=== PATIENT | female | born 1945 | race Caucasian/White ===

== ENCOUNTER → 2017-08-24 08:39 | Outpatient (CLI) | payer MEDICARE, SELFPAY ==
[2017-08-24 09:39] LABS: Hemoglobin A1C 7.2 % (0.0-7.0)
[2017-08-24 11:27] LABS: Alanine Aminotransferase 34 U/L (12-78); Albumin Level 4.2 gm/dL (3.4-5.0); Alkaline Phosphatase 93 U/L (46-116); Anion Gap 18.4 mEq/L (5-15); Aspartate Amino Transferase 29 U/L (15-37); Bilirubin,Total 0.5 mg/dL (0.2-1.0); Blood Urea Nitrogen 22 mg/dL (7-18); Calcium 9.5 mg/dL (8.5-10.1); Carbon Dioxide 25 mmol/L (21.0-32.0); Chloride 103 mmol/L (98-107); Chol/HDL Ratio 5.8 (1-3.5); Cholesterol 198 mg/dL (140-200); Creatinine,Serum 0.84 mg/dL (0.55-1.02); Estimated Glomerular Filt Rate 67 ml/min (>60); GFR (African American) 81 ML/MIN (>60); Globulin 4.1 gm/dl (1.3-3.2); Glucose 148 mg/dL (74-106); HDL Cholesterol 34 mg/dL (29-89); LDL Cholesterol 128 mg/dL (0-130); Potassium 4.4 mmoL/L (3.5-5.1); Sodium 142 mmol/L (136-145); Total Protein,Serum 8.3 gm/dL (6.4-8.2); Triglycerides 180 mg/dL (30-200); VLDL Cholesterol 36 mg/dL (0-40)
== END ==
PROVIDERS: Visit Provider Family Medicine
DX: E11.9 Type 2 diabetes mellitus without complications (principal); E78.5 Hyperlipidemia, unspecified; I10 Essential (primary) hypertension
CPT/HCPCS: 36415; 80053; 80061; 83036

== ENCOUNTER → 2017-11-19 08:09 | Outpatient (CLI) | payer MEDICARE, SELFPAY ==
[2017-11-19 08:54] LABS: Hemoglobin A1C 6.5 % (0.0-7.0)
[2017-11-19 09:45] LABS: Chol/HDL Ratio 5.4 (1-3.5); Cholesterol 196 mg/dL (140-200); HDL Cholesterol 36 mg/dL (29-89); LDL Cholesterol 119 mg/dL (0-130); Triglycerides 203 mg/dL (30-200); VLDL Cholesterol 41 mg/dL (0-40)
== END ==
PROVIDERS: Visit Provider Family Medicine
DX: E11.9 Type 2 diabetes mellitus without complications (principal); E78.5 Hyperlipidemia, unspecified
CPT/HCPCS: 36415; 80061; 83036

== ENCOUNTER → 2018-02-25 08:12 | Outpatient (CLI) | payer MEDICARE, SELFPAY ==
[2018-02-25 11:10] LABS: Alanine Aminotransferase 27 U/L (12-78); Albumin Level 3.8 gm/dL (3.4-5.0); Alkaline Phosphatase 85 U/L (46-116); Anion Gap 14.5 mEq/L (5-15); Aspartate Amino Transferase 19 U/L (15-37); Bilirubin,Total 0.4 mg/dL (0.2-1.0); Blood Urea Nitrogen 19 mg/dL (7-18); Carbon Dioxide 28 mmol/L (21.0-32.0); Chloride 101 mmol/L (98-107); Chol/HDL Ratio 4.6 (1-3.5); Cholesterol 180 mg/dL (140-200); Creatinine,Serum 0.75 mg/dL (0.55-1.02); Estimated Glomerular Filt Rate 76 ml/min (>60); GFR (African American) 92 ML/MIN (>60); Globulin 3.8 gm/dl (1.3-3.2); Glucose 138 mg/dL (74-106); HDL Cholesterol 39 mg/dL (29-89); LDL Cholesterol 109 mg/dL (0-130); Potassium 4.5 mmoL/L (3.5-5.1); Sodium 139 mmol/L (136-145); Total Protein,Serum 7.6 gm/dL (6.4-8.2); Triglycerides 162 mg/dL (30-200); VLDL Cholesterol 32 mg/dL (0-40)
[2018-02-25 11:54] LABS: Hemoglobin A1C 6.7 % (0.0-7.0)
== END ==
PROVIDERS: Visit Provider Family Medicine
DX: E11.9 Type 2 diabetes mellitus without complications (principal); E78.5 Hyperlipidemia, unspecified; I10 Essential (primary) hypertension
CPT/HCPCS: 36415; 80053; 80061; 83036

== ENCOUNTER → 2018-08-25 08:17 | Outpatient (CLI) | payer MEDICARE, SELFPAY ==
[2018-08-25 10:00] LABS: Alanine Aminotransferase 26 U/L (12-78); Albumin Level 3.8 gm/dL (3.4-5.0); Alkaline Phosphatase 82 U/L (46-116); Anion Gap 14.9 mEq/L (5-15); Aspartate Amino Transferase 13 U/L (15-37); Bilirubin,Total 0.5 mg/dL (0.2-1.0); Blood Urea Nitrogen 27 mg/dL (7-18); Calcium 8.6 mg/dL (8.5-10.1); Carbon Dioxide 26 mmol/L (21.0-32.0); Chloride 102 mmol/L (98-107); Chol/HDL Ratio 5.5 (1-3.5); Cholesterol 191 mg/dL (140-200); Creatinine,Serum 0.84 mg/dL (0.55-1.02); Estimated Glomerular Filt Rate 67 ml/min (>60); GFR (African American) 81 ML/MIN (>60); Globulin 3.8 gm/dl (1.3-3.2); Glucose 164 mg/dL (74-106); HDL Cholesterol 35 mg/dL (29-89); LDL Cholesterol 120 mg/dL (0-130); Potassium 3.9 mmoL/L (3.5-5.1); Sodium 139 mmol/L (136-145); Total Protein,Serum 7.6 gm/dL (6.4-8.2); Triglycerides 180 mg/dL (30-200); VLDL Cholesterol 36 mg/dL (0-40)
[2018-08-25 11:21] LABS: Hemoglobin A1C 6.8 % (0.0-7.0)
== END ==
PROVIDERS: Visit Provider Family Medicine
DX: E11.9 Type 2 diabetes mellitus without complications (principal); E78.5 Hyperlipidemia, unspecified; I10 Essential (primary) hypertension
CPT/HCPCS: 36415; 80053; 80061; 83036

== ENCOUNTER → 2019-01-17 09:39 | Outpatient (CLI) | payer MEDICARE, SELFPAY ==
--- NOTE | 2019-01-17 09:49 | MM_ITS ---
PROCEDURE: MM DIG SCREENING MAMM BI W/CAD Patient Age:73Y CLINICAL INDICATION: SCREENING No hormones but no new complaints. Noncontributory family history. COMPARISON: [facility] DIG MAMM-SCREEN MALVIN W/CAD from 01/19/2017 TECHNIQUE: Standard CC and MLO images were obtained. R2 CAD reviewed. FINDINGS: Low-density breast with generalized fatty replacement, and only minimal residual fibroglandular elements. No significant new findings but there are scattered benign-appearing areas of calcifications bilaterally. Many of these reflect skin, dermal calcifications bilaterally Bilateral follow-up 1 year adequate IMPRESSION: Stable bilateral mammogram. No new areas of significant concern Stable overall benign-appearing calcification bilaterally of which can be followed in 1 year BI-RAD Category: 2 Benign Finding(s) FOLLOW-UP: 1YR 1 Year Follow-up (A letter has been sent to the patient regarding results of the study.) Dictated by: Deo Yip MD 01/20/2019 11:04 Electronically signed by Deo Yip MD in [place] 01/20/2019 11:04
== END ==
PROVIDERS: PCP Family Medicine; Visit Provider Family Medicine
DX: Z12.31 Encounter for screening mammogram for malignant neoplasm of breast (principal)
CPT/HCPCS: 77067

== ENCOUNTER → 2019-02-24 10:38 | Outpatient (CLI) | payer MEDICARE, SELFPAY ==
[2019-02-24 13:17] LABS: Alanine Aminotransferase 25 U/L (12-78); Albumin Level 3.9 gm/dL (3.4-5.0); Albumin/Globulin Ratio 1.1 (1.1-1.8); Alkaline Phosphatase 84 U/L (46-116); Anion Gap 15.4 mEq/L (5-15); Aspartate Amino Transferase 15 U/L (15-37); Bilirubin,Total 0.4 mg/dL (0.2-1.0); Blood Urea Nitrogen 14 mg/dL (7-18); Carbon Dioxide 26 mmol/L (21.0-32.0); Chloride 103 mmol/L (98-107); Chol/HDL Ratio 4.7 (1-3.5); Cholesterol 192 mg/dL (140-200); Estimated Glomerular Filt Rate 71 ml/min (>60); GFR (African American) 85 ML/MIN (>60); Globulin 3.6 gm/dl (1.3-3.2); Glucose 112 mg/dL (74-106); HDL Cholesterol 41 mg/dL (29-89); LDL Cholesterol 120 mg/dL (0-130); Potassium 4.4 mmoL/L (3.5-5.1); Sodium 140 mmol/L (136-145); Total Protein,Serum 7.5 gm/dL (6.4-8.2); Triglycerides 153 mg/dL (30-200); VLDL Cholesterol 31 mg/dL (0-40)
[2019-02-24 13:22] LABS: Hemoglobin A1C 6.8 % (0.0-7.0)
[2019-02-24 13:26] LABS: Calcium 8.7 mg/dL (8.5-10.1)
== END ==
PROVIDERS: Visit Provider Family Medicine
DX: E11.9 Type 2 diabetes mellitus without complications (principal); E78.5 Hyperlipidemia, unspecified; I10 Essential (primary) hypertension
CPT/HCPCS: 36415; 80053; 80061; 83036

== ENCOUNTER → 2019-08-27 08:03 | Outpatient (CLI) | payer MEDICARE, SELFPAY ==
[2019-08-27 09:03] LABS: Chloride 103 mmol/L (98-107); Potassium 4.4 mmoL/L (3.5-5.1); Sodium 138 mmol/L (136-145)
[2019-08-27 09:05] LABS: Alanine Aminotransferase 23 U/L (12-78); Anion Gap 14.4 mEq/L (5-15); Aspartate Amino Transferase 25 U/L (14-36); Blood Urea Nitrogen 22 mg/dl (7-17); Carbon Dioxide 25 mmol/L (22.0-30.0); Estimated Glomerular Filt Rate 82 ml/min (>60); GFR (African American) 100 ML/MIN (>60)
[2019-08-27 09:06] LABS: Albumin Level 4.7 g/dl (3.5-5.0); Albumin/Globulin Ratio 1.4 (1.1-1.8); Alkaline Phosphatase 87 U/L (38-126); Bilirubin,Total 0.4 mg/dl (0.2-1.3); Calcium 9.7 mg/dl (8.4-10.2); Chol/HDL Ratio 4.2 (1-3.5); Cholesterol 197 mg/dl (140-200); Globulin 3.3 g/dL (1.3-3.2); Glucose 158 mg/dl (74-100); HDL Cholesterol 47 mg/dl (40-60); Triglycerides 166 mg/dl (30-150); VLDL Cholesterol 33 mg/dL (0-40)
[2019-08-27 09:17] LABS: Direct LDL Cholesterol 130.76 mg/dL (100-129)
[2019-08-27 10:58] LABS: Hemoglobin A1C 5.9 % (4.0-6.0)
[2019-08-28 09:32] LABS: Creatinine, Urine 40.6 mg/dL (Not Estab.); Microalbumin, Urine 64.1 ug/mL (Not Estab.)
== END ==
PROVIDERS: Visit Provider Family Medicine
DX: E78.5 Hyperlipidemia, unspecified (principal); I10 Essential (primary) hypertension; E11.9 Type 2 diabetes mellitus without complications
CPT/HCPCS: 36415; 80053; 80061; 82043; 82570; 83036

== ENCOUNTER → 2019-09-05 09:02 | Outpatient (CLI) | payer MEDICARE, SELFPAY ==
--- NOTE | 2019-09-05 09:05 | XR_ITS ---
PROCEDURE: XR DEXA AXIAL SKELETON CLINICAL HISTORY: OSTEOPENIA COMPARISON: No exams were available for comparison FINDINGS: Total right femoral density is 0.789 grams/centimeters sq with T-score of -1.3. Total left femoral density is 0.700 grams/centimeters sq with T-score of -2.0. L1-L4 density is 0.868 grams/centimeters sq with a T-score of -1.6. IMPRESSION: Osteopenia with moderate fracture risk. Treatment advised. Suggest follow-up exam in 2 years. Dictated by: Christian Boothe MD 09/05/2019 11:18 Electronically signed by Christian Boothe MD in [facility] 09/05/2019 11:18
== END ==
PROVIDERS: PCP Family Medicine; Visit Provider Family Medicine
DX: M85.89 Other specified disorders of bone density and structure, multiple sites (principal)
CPT/HCPCS: 77080

== ENCOUNTER → 2019-11-28 08:54 | Outpatient (CLI) | payer MEDICARE, SELFPAY ==
[2019-11-28 10:02] LABS: Chloride 103 mmol/L (98-107); Potassium 4.4 mmoL/L (3.5-5.1); Sodium 141 mmol/L (136-145)
[2019-11-28 10:05] LABS: Anion Gap 18.4 mEq/L (5-15); Blood Urea Nitrogen 30 mg/dl (7-17); Carbon Dioxide 24 mmol/L (22.0-30.0); Estimated Glomerular Filt Rate 61 ml/min (>60); GFR (African American) 74 ML/MIN (>60)
[2019-11-28 10:06] LABS: Calcium 9.5 mg/dl (8.4-10.2); Chol/HDL Ratio 4.6 (1-3.5); Cholesterol 197 mg/dl (140-200); Glucose 137 mg/dl (74-100); HDL Cholesterol 43 mg/dl (40-60); Triglycerides 162 mg/dl (30-150); VLDL Cholesterol 32 mg/dL (0-40)
[2019-11-28 10:16] LABS: Direct LDL Cholesterol 116.81 mg/dL (100-129)
== END ==
PROVIDERS: Visit Provider Family Medicine
DX: E78.5 Hyperlipidemia, unspecified (principal)
CPT/HCPCS: 36415; 80048; 80061

== ENCOUNTER → 2020-07-12 08:06 | Outpatient (CLI) | payer MEDICARE, SELFPAY ==
[2020-07-12 09:05] LABS: Hemoglobin A1C 6.6 % (4.0-6.0)
[2020-07-12 09:26] LABS: Alanine Aminotransferase 18 U/L (12-78); Albumin Level 4.8 g/dl (3.5-5.0); Albumin/Globulin Ratio 1.5 (1.1-1.8); Alkaline Phosphatase 105 U/L (38-126); Anion Gap 16.6 mEq/L (5-15); Aspartate Amino Transferase 23 U/L (14-36); Bilirubin,Total 0.4 mg/dl (0.2-1.3); Blood Urea Nitrogen 21 mg/dl (7-17); Calcium 9.8 mg/dl (8.4-10.2); Carbon Dioxide 24 mmol/L (22.0-30.0); Chloride 105 mmol/L (98-107); Chol/HDL Ratio 5.2 (1-3.5); Cholesterol 233 mg/dl (140-200); Estimated Glomerular Filt Rate 82 ml/min (>60); GFR (African American) 99 ML/MIN (>60); Globulin 3.2 g/dL (1.3-3.2); Glucose 134 mg/dl (74-100); HDL Cholesterol 45 mg/dl (40-60); Potassium 4.6 mmoL/L (3.5-5.1); Sodium 141 mmol/L (136-145); Triglycerides 155 mg/dl (30-150); VLDL Cholesterol 31 mg/dL (0-40)
[2020-07-12 09:37] LABS: Direct LDL Cholesterol 133.78 mg/dL (100-129)
[2020-07-12 12:06] LABS: Microalbumin/Creatinine Ratio 344.4
[2020-07-12 12:39] LABS: Creatinine,Urine Random 34 mg/dL (Not Estab.)
== END ==
PROVIDERS: Visit Provider Family Medicine
DX: E78.5 Hyperlipidemia, unspecified (principal); I10 Essential (primary) hypertension; E11.9 Type 2 diabetes mellitus without complications
CPT/HCPCS: 36415; 80053; 80061; 82043; 82570; 83036

== ENCOUNTER → 2021-07-18 08:25 | Outpatient (CLI) | payer MEDICARE, SELFPAY ==
[2021-07-18 09:59] LABS: Hemoglobin A1C 6.4 % (4.0-6.0)
[2021-07-18 10:18] LABS: Alanine Aminotransferase 22 U/L (12-78); Albumin Level 4.6 g/dl (3.5-5.0); Albumin/Globulin Ratio 1.4 (1.1-1.8); Alkaline Phosphatase 88 U/L (38-126); Aspartate Amino Transferase 27 U/L (14-36); Bilirubin,Total 0.5 mg/dl (0.2-1.3); Blood Urea Nitrogen 36 mg/dl (7-17); Calcium 9.2 mg/dl (8.4-10.2); Carbon Dioxide 23 mmol/L (22.0-30.0); Chloride 105 mmol/L (98-107); Chol/HDL Ratio 5.2 (1-3.5); Cholesterol 177 mg/dl (140-200); Estimated Glomerular Filt Rate 61 ml/min (>60); GFR (African American) 74 ML/MIN (>60); Globulin 3.3 g/dL (1.3-3.2); Glucose 128 mg/dl (74-100); HDL Cholesterol 34 mg/dl (40-60); Sodium 139 mmol/L (136-145); Total Protein,Serum 7.9 g/dl (6.3-8.2); Triglycerides 137 mg/dl (30-150); VLDL Cholesterol 27 mg/dL (0-40)
[2021-07-18 10:29] LABS: Direct LDL Cholesterol 92.39 mg/dL (100-129)
== END ==
PROVIDERS: Visit Provider Family Medicine
DX: I10 Essential (primary) hypertension (principal); E11.9 Type 2 diabetes mellitus without complications; E78.5 Hyperlipidemia, unspecified
CPT/HCPCS: 36415; 80053; 80061; 83036

== ENCOUNTER 2023-07-25 09:01 | Outpatient (CLI) | payer MEDICARE, SELFPAY ==
--- NOTE | 2023-07-25 | CA_ITS ---
APPROVED REPORT EXAM: Comprehensive 2D, Doppler, and color-flow Echocardiogram Bag Filler Machine Operator: Breanna Marx CRT Ht: 5 ft 4 in Wt: 152lbs BSA: 1.74 BP: 176/70 mmHg Indications: Abnormal ECG, Murmur, Shortness of Breath, Diabetes, Hyperlipidemia, Hypertension/HDD 2D Dimensions LA Volume 63.60 mL LA Volume Index 35.70 mL/m2 (M/F) 16-34 M-Mode Dimensions RVDd 2.63 cm (0.9-2.6) LA Diam 4.59 cm (1.9-4.0) LVDd 4.22 cm (3.5-5.7) LVDs 3.31 cm (3.5-5.7) IVSd 1.58 cm (0.6-1.1) PWd 0.78 cm (0.6-1.1) EF (Teich) 44.00% FS 21.60% EDV (Teich) 79.50 mL TAPSE 2.38 (<1.7) ESV (Teich) 44.50 mL LV Diastology E Decel Time 153 (160-240 msec) E/A Ratio 0.83 MED A' 11.30 cm/s LAT A' 9.90 cm/s Aortic Valve ADRYAN Index 0.71 cm2/m2 AoV Peak Jerry. 248.0 (50-130 cm/s) AO Peak GR. 24.60 mmHg AO Mean GR. 14.20 (<5 mmHg) AO VTI 52.6 (18-25 cm) ADRYAN (VTI) 1.26 (2.5-4.5 cm2) Mitral Valve MV E Max Jerry. 94.0 (40-130 cm/s) MV A Velocity 113.0 (40-130 cm/s) E/A Ratio 0.83 MV PHT 45.0 ms Pulmonary Valve PV Peak Velocity 98.0 (50-150 cm/s) Tricuspid Valve TR P. Velocity 285.00 cm/s RAP Estimate 10.00 mmHg RVSP 42.40 mmHg Left Ventricle The left ventricle is normal size. The left ventricular systolic function is normal. The left ventricular ejection fraction is within the normal range. There is increased LV wall thickness. There is normal LV segmental wall motion. Grade 2 diastolic dysfunction is present. LVEF is 55%. Right Ventricle The right ventricle is normal size. The right ventricular systolic function is normal. Atria The left atrium is mildly dilated. The right atrium size is normal. There is no Doppler evidence of interatrial shunt. Aortic Valve The aortic valve is mildly thickened. Mild aortic stenosis. ADRYAN by continuity equation is 1.9 cm2. Peak velocity 2.6 m/s. Mean AV gradient 13 mmHg. Max AV gradient 23 mmHg. Mild aortic regurgitation. Mitral Valve The mitral valve is mildly thickened. No evidence of mitral valve stenosis. Mild mitral regurgitation. Tricuspid Valve The tricuspid valve leaflets are thin and pliable. Mild tricuspid regurgitation. RVSP is 35-40 mmHg. Pulmonic Valve The pulmonary valve is normal in structure. Trace pulmonic regurgitation. Great Vessels The aortic root is normal in size. The ascending aorta is not well-visualized. IVC is normal in size and collapses >50% with inspiration. Other Information Study Quality: Fair Conclusion Normal biventricular systolic function. Grade 2 diastolic dysfunction. Mild LA dilation. Mild (ADRYAN by continuity equation is 1.9 cm2. Peak velocity 2.6 m/s. Mean AV gradient 13 mmHg. Max AV gradient 23 mmHg). Mild MR, mild TR. Elevated RVSP 35-40 mmHg. Electronically signed by : Chela Ceja MD 07/27/2023 22:17:14
== END 2023-07-25 23:59 ==
LOC: RT 09:02
PROVIDERS: PCP Nurse Practitioner Family; Visit Provider Nurse Practitioner Family
DX: R01.1 Cardiac murmur, unspecified (principal)
CPT/HCPCS: 93306

== ENCOUNTER 2023-08-04 07:40 | Outpatient (CLI) | payer MEDICARE, SELFPAY ==
--- NOTE | 2023-08-04 | CA_ITS ---
APPROVED REPORT Exam: Pharmacologic Technologist: Lashanda Farias, Ht: 5 ft 4 in Wt: 152 lbs BSA: 1.74 m2 HR: 65 bpm BP: 155/51 mmHg Rhythm: NSR, ST-T ABNS INFERIORLY AND ANTEROLATERALLY Medical History Medical History: HTN, Hyperlipidemia, Diabetes, Smoking Medications: Lisinopril,,,,, Aspirin,,,,, Verapamil,,,,, Simvastatin,,,,, Metformin,,,,, Allergies: No known drug allergies Cardiac Risk Factors: HTN, Hyperlipidemia, Diabetes , Smoking Stress Test Details Test: LEXISCAN HR Resting HR: 73 bpm Max Heart Rate (APMHR): 144 bpm Max HR Achieved: 109 bpm Target HR (85% APMHR): 122 bpm % of APMHR: 76 Recovery HR: 94 bpm BP Resting BP: 155/51 mmHg Max BP: 167/68 mmHg Recovery BP: 163.0/64.0 mmHg ECG Resting ECG: NSR, ST-T ABNS INFERIORLY AND ANTEROLATERALLY Clinical Exercise duration: 04:01 min Highest Stage Achieved: Stress ECG Conclusion PT HAD MILD SOA NO CP RARE PVC N SIGNIFICANT ST CHANGES NON-DX LEXISCAN STRESS DUE TO BASELINE EKG ABNS MYOVIEW IMAGES REPORTED SEPARATELY Test Summary REST 02:33 . . 73 . 155/ 51 . . Stage 1 01:00 . . 102 . . . . Stage 2 01:00 . . 108 . 167/ 68 . . Stage 3 01:00 . . 104 . 160/ 66 . . Stage 4 01:00 . . 97 . 162/ 65 . . Stage 4 01:01 . . 97 . 162/ 65 . Stop exercise at 04:01 RECOVERY 01:00 . . 89 . . . . RECOVERY 02:00 . . 93 . 164/ 63 . . RECOVERY 03:00 . . 88 . 163/ 64 . . RECOVERY 03:31 . . 91 . 163/ 64 . . Electronically signed by : Chela Ceja MD 08/08/2023 12:08:32
--- NOTE | 2023-08-04 08:40 | NM_ITS ---
APPROVED REPORT Exam: Nuclear Stress Test Indication: SOB, Abnormal EKG, Fatigue, HTN, DM, High cholesterol, Family history Patient Location: Outpatient Stress Tech: Lashanda Farias AR Tech:Trice Jones, ARRT, RT (R)(N) Ht: 5 ft 3 in Wt: 150 lbs Bra Size: 44D HR: 73 bpm BP: 155/51 mmHg BSA: 1.71 m2 Rhythm: NSR TID: 1.10 BMI: 26.5 History: SOB, Abnormal EKG, Fatigue, HTN, DM, High cholesterol, Family history Procedure: Patient received 0.4 mg of intravenous Lexiscan, resting heart rate 73 bpm, resting blood pressure 155/51 mmHg, with Lexiscan maximum heart rate achieved was 109 bpm which is % of the maximum predicted heart rate and blood pressure was 167/68 mmHg. With Lexiscan, patient denied any complaint of chest pain. Cardiac Stress and Resting SPECT Images: Cardiac Stress and Resting SPECT images were obtained using technetium 99m Myoview 31.5 mCi stress and 10.55 mCi at rest. The patient could not lie on her abdomen. Therefore, prone stress imaging could not be performed. This may affect the diagnostic interpretation of the study findings. Resting and stress imaging in supine positions demonstrate a large sized, severe, predominantly reversible perfusion defect in the basal to mid inferior LV wall. Gated imaging demonstrates normal global LV systolic function. There is severe hypokinesis of the basal inferior LV wall. LVEF is calculated at 57%. Conclusion: Large sized, severe, predominantly reversible perfusion defect in the basal to mid inferior LV wall. Findings are suggestive of reversible ischemia. Gated imaging demonstrates normal global LV systolic function. There is severe hypokinesis of the basal inferior LV wall. LVEF is calculated at 57%. Electronically signed by : Chela Ceja MD 08/08/2023 12:10:00
[2023-08-04] MEDS: REGADENOSON 0.4MG/5ML SYRINGE 0.400000000000000022 MG IV (09:19)
[2023-08-04] MEDS: ISOTOPE MYOVIEW (PER STUDY) 1 DOSE IV (09:19)
[2023-08-04] MEDS: SODIUM CHLORIDE 0.9% 10ML SYR (RAD ONLY) 10 ML IV ×2 (09:19)
== END 2023-08-04 23:59 ==
LOC: RAD 07:40
PROVIDERS: PCP Nurse Practitioner Family; Visit Provider Physician Assistant
DX: R06.09 Other forms of dyspnea (principal); R94.31 Abnormal electrocardiogram [ECG] [EKG]; I10 Essential (primary) hypertension; E13.69 Other specified diabetes mellitus with other specified complication; Z79.84 Long term (current) use of oral hypoglycemic drugs
CPT/HCPCS: 78452; 93017; 93018; A9502; J2785

== ENCOUNTER 2023-08-18 08:54 | Day surgery (SDC) | payer MEDICARE, SELFPAY ==
[2023-08-18] VITALS (12 sets, daily range): BP systolic 146–175; BP diastolic 69–112; PULSE 61–97; RESP 15–17; TEMP 36.4; O2SAT 96–99; BMI 25.4
--- NOTE | 2023-08-18 07:02 | IR_ITS ---
APPROVED REPORT Patient Location: Outpatient PROCEDURES Left heart catheterization Left ventriculogram Selective coronary angiogram Drug-eluting stent deployment to the mid left anterior descending artery INDICATION Angina pectoris, Abnormal CCTA, Chronically occluded right coronary artery which is collateralized by a severely diseased mid LAD Informed consent was obtained prior to the procedure. COMPLICATIONS NONE Estimated Blood Loss: LESS THAN 10 ML TECHNIQUE One percent lidocaine used to anesthetize the right anterior aspect of the wrist. The right radial artery was accessed via the Seldinger technique. A 6 Nepalese sheath was placed in the right radial artery. 2.5 mg of Verapamil, 800 mcg of nitroglycerin, 1mg Lidocaine and 5000 U Heparin were given through the arterial sheath. The papa catheter was also used to perform left heart catheterization, left ventriculogram and selective coronary angiogram. At the end of the diagnostic angiogram therapeutic heparin was administered giving a therapeutic ACT and the guide catheter was placed in the left main artery followed by a Choice PT extra-support wire placed down the LAD and into the first diagonal artery. A 3 mm x 12 mm [place] frontier stent was deployed at 14 cash reducing the stenosis to 0%. There was haziness distal to the stent therefore the wire was placed back into the LAD proper and a 2.5 x 15 mm Nick frontier stent was deployed at 14 cash distal to the for stent yet still overlapping it and crossing over of the large second diagonal artery. The balloon was brought back and deployed at 20 cash to mesh the 2 stents. DELANEY-3 flow was present before and after the procedure. At the end the procedure the large second diagonal artery had an ostial 60% stenosis accompanied by DELANEY III flow therefore the apparatus was removed the sheath was removed and hemostasis was achieved using TR banding patient was transferred to the postop holding in stable condition ANGIOGRAPHIC RESULTS The left main artery Normal The left anterior descending artery Proximally normal with a mid vessel focal 90% just after a large septal stippler. Large second diagonal artery is widely patent with the jailed 60% ostial proximal stenosis following the stent procedure The circumflex artery Nondominant with diffuse 20 and 30% stenoses The right coronary artery Large dominant proximally occluded and fills via left to right collaterals primarily from the LAD The VERGARA ventriculogram reveals Preserved 60% The left ventricular end-diastolic pressure 20 mmHg IMPRESSION Chronically occluded dominant right coronary artery which fills via a large and rich [id number] collateral network Severe to critical disease in the mid LAD which supplies not out of the LAD but also collateralized the distal dominant right coronary with successful stenting reducing the lesion to 0% with 2 contiguous drug-eluting stents Persistently jailed second diagonal artery which is accompanied by DELANEY-3 flow and is not appropriate for stenting or revascularization at this time given the DELANEY-3 flow Preserved ejection fraction with mildly elevated LVEDP PLAN 1. Dual antiplatelet therapy 2. Cardiac rehabilitation 3. Avoidance of tobacco products 4. LDL less than 55 to be achieved with high intensity statin Electronically signed by : Hilton Olguin MD 08/18/2023 11:44:35
[2023-08-18 09:30] LABS: Chloride 105 mmol/L (98-107); Potassium 4.7 mmoL/L (3.5-5.1); Sodium 138 mmol/L (136-145)
[2023-08-18 09:31] LABS: Basophils # 0.1 K/mm3 (0-0.2); Basophils % 0.9 % (0.1-2.0); Eosinophils # 0.1 K/mm3 (0.0-0.4); Eosinophils % 1.8 % (0.1-12.0); Hematocrit 38.7 % (37.0-47.0); Hemoglobin 12.2 g/dL (12.2-16.2); Lymphocytes % 26.9 % (10-50); Mean Corpuscular HGB Conc 31.5 g/dL (31.8-35.4); Mean Corpuscular Volume 95.3 fl (81-99); Monocytes # 0.5 K/mm3 (0.1-1.0); Monocytes % 6.3 % (1.7-9.3); Neutrophils # 4.7 K/mm3 (1.8-7.8); Neutrophils % 64.1 % (37.0-80.0); Platelet Count 249 K/mm3 (142-424); Red Blood Count 4.06 M/mm3 (4.20-5.40); Red Cell Distribution Width 14.2 % (11.5-17.5); White Blood Count 7.4 K/mm3 (4.8-10.8)
[2023-08-18 09:33] LABS: Blood Urea Nitrogen 30 mg/dl (7-17); Creatinine Clearance Estimated 51 mL/min (50-200); Estimated Glomerular Filt Rate 54 ml/min (>60); GFR (African American) 65 ML/MIN (>60)
[2023-08-18 09:34] LABS: Anion Gap 11.7 mEq/L (5-15); Calcium 9.7 mg/dl (8.4-10.2); Carbon Dioxide 26 mmol/L (22.0-30.0); Glucose 126 mg/dl (74-100)
[2023-08-18] MEDS: HEPARIN 1,000 UNITS/ML 10ML VIAL (CATH LAB) 10000 UNIT IV (10:56)
[2023-08-18] MEDS: LIDOCAINE 1% 10ML MDV 20 ML IJ (10:56)
[2023-08-18] MEDS: HEPARIN 1,000 UNITS/500ML NS (CATH LAB) 3000 UNIT IV (10:56)
[2023-08-18] MEDS: diphenhydrAMINE 50MG/ML VIAL 50 MG IV (10:56)
[2023-08-18] MEDS: 0.9 % SODIUM CHLORIDE 500 ML 25 ML IV (10:57)
[2023-08-18] MEDS: VERAPAMIL 2.5MG/ML 2ML VIAL 2.5 MG IV (10:57)
[2023-08-18] MEDS: NITROGLYCERIN 800MCG/8ML SYR (CATH LAB) 800 MCG IA (10:58)
[2023-08-18] MEDS: CLOPIDOGREL 300MG TABLET 600 MG PO (11:24)
[2023-08-18] MEDS: FENTANYL 100MCG/2ML VIAL 50 MCG IV (11:31)
[2023-08-18] MEDS: MIDAZOLAM HCL 1MG/1ML 5ML VIAL 1 MG IV (11:31)
[2023-08-18] MEDS: IOPAMIDOL-370 (76%);100ML BOTTLE 110 ML IV (12:31)
[2023-08-18 12:33] LABS: CATHL Activated Clotting Time 253 SEC (74-125)
== END 2023-08-18 14:51 | disposition home or self-care (01) ==
PROVIDERS: PCP Nurse Practitioner Family; Visit Provider Internal Medicine
DX: R93.1 Abnormal findings on diagnostic imaging of heart and coronary circulation (principal); R01.1 Cardiac murmur, unspecified; Z82.49 Family history of ischemic heart disease and other diseases of the circulatory system; R06.09 Other forms of dyspnea; R94.31 Abnormal electrocardiogram [ECG] [EKG]; E11.9 Type 2 diabetes mellitus without complications; I10 Essential (primary) hypertension; Z79.84 Long term (current) use of oral hypoglycemic drugs; Z79.899 Other long term (current) drug therapy; Z87.891 Personal history of nicotine dependence; I25.118 Atherosclerotic heart disease of native coronary artery with other forms of angina pectoris
CPT/HCPCS: 80048; 85025; 85347; 92928; 93458; 99152; 99153; C1725; C1760; C1769; C1876; C9600; J1644; Q9967

== ENCOUNTER 2023-08-20 08:29 | Outpatient (CLI) | payer MEDICARE, SELFPAY ==
[2023-08-20 08:55] LABS: Basophils # 0.1 K/mm3 (0-0.2); Basophils % 0.8 % (0.1-2.0); Eosinophils # 0.2 K/mm3 (0.0-0.4); Eosinophils % 2.2 % (0.1-12.0); Hematocrit 35.4 % (37.0-47.0); Hemoglobin 11.4 g/dL (12.2-16.2); Lymphocytes # 1.9 K/mm3 (0.7-4.5); Lymphocytes % 23.1 % (10-50); Mean Corpuscular HGB Conc 32.2 g/dL (31.8-35.4); Mean Corpuscular Hemoglobin 30.7 pg (27.0-31.2); Mean Corpuscular Volume 95.4 fl (81-99); Mean Platelet Volume 8.5 fl (7.4-10.4); Monocytes # 0.6 K/mm3 (0.1-1.0); Monocytes % 6.7 % (1.7-9.3); Neutrophils # 5.6 K/mm3 (1.8-7.8); Neutrophils % 67.1 % (37.0-80.0); Platelet Count 241 K/mm3 (142-424); Red Blood Count 3.71 M/mm3 (4.20-5.40); Red Cell Distribution Width 14.2 % (11.5-17.5); White Blood Count 8.3 K/mm3 (4.8-10.8)
[2023-08-20 09:02] LABS: Anion Gap 11.8 mEq/L (5-15); Blood Urea Nitrogen 29 mg/dl (7-17); Calcium 9.5 mg/dl (8.4-10.2); Carbon Dioxide 25 mmol/L (22.0-30.0); Chloride 106 mmol/L (98-107); Estimated Glomerular Filt Rate 54 ml/min (>60); GFR (African American) 65 ML/MIN (>60); Glucose 145 mg/dl (74-100); Potassium 4.8 mmoL/L (3.5-5.1); Sodium 138 mmol/L (136-145)
== END 2023-08-20 23:59 | disposition home or self-care (01) ==
LOC: LAB 08:31
PROVIDERS: PCP Nurse Practitioner Family; Visit Provider Internal Medicine
DX: I25.10 Atherosclerotic heart disease of native coronary artery without angina pectoris (principal); Z95.5 Presence of coronary angioplasty implant and graft
CPT/HCPCS: 36415; 80048; 85025

== ENCOUNTER 2024-06-11 08:27 | Outpatient (CLI) | payer MEDICARE, SELFPAY ==
[2024-06-11 09:15] LABS: Basophils # 0.1 K/mm3 (0-0.2); Basophils % 0.8 % (0.1-2.0); Eosinophils # 0.1 K/mm3 (0.0-0.4); Eosinophils % 1.8 % (0.1-12.0); Hematocrit 32.8 % (37.0-47.0); Hemoglobin 10.3 g/dL (12.2-16.2); Lymphocytes # 1.5 K/mm3 (0.7-4.5); Lymphocytes % 19.6 % (10-50); Mean Corpuscular HGB Conc 31.4 g/dL (31.8-35.4); Mean Corpuscular Hemoglobin 28.7 pg (27.0-31.2); Mean Corpuscular Volume 91.4 fl (81-99); Mean Platelet Volume 10.2 fl (7.4-10.4); Monocytes # 0.8 K/mm3 (0.1-1.0); Monocytes % 10.3 % (1.7-9.3); Neutrophils # 5.2 K/mm3 (1.8-7.8); Platelet Count 215 K/mm3 (142-424); Red Blood Count 3.59 M/mm3 (4.20-5.40); Red Cell Distribution Width 14.7 % (11.5-17.5); White Blood Count 7.7 K/mm3 (4.8-10.8)
[2024-06-11 09:34] LABS: Albumin Level 4.3 g/dl (3.5-5.0); Chloride 105 mmol/L (98-107); Sodium 140 mmol/L (136-145)
[2024-06-11 09:35] LABS: Potassium 5.1 mmoL/L (3.5-5.1)
[2024-06-11 09:37] LABS: Alanine Aminotransferase 19 U/L (12-78); Anion Gap 14.1 mEq/L (5-15); Aspartate Amino Transferase 22 U/L (14-36); Bilirubin,Unconjugated 0.3 mg/dL (0.0-1.1); Blood Urea Nitrogen 32 mg/dl (7-17); Carbon Dioxide 26 mmol/L (22.0-30.0); Cholesterol 146 mg/dl (140-200); Estimated Glomerular Filt Rate 61 ml/min (>60); GFR (African American) 73 ML/MIN (>60); Triglycerides 85 mg/dl (30-150); VLDL Cholesterol 17 mg/dL (0-40)
[2024-06-11 09:38] LABS: Alkaline Phosphatase 107 U/L (38-126); Bilirubin,Direct 0.2 mg/dl (0.0-0.4); Bilirubin,Indirect 0.3 mg/dL (0.0-0.9); Bilirubin,Total 0.5 mg/dl (0.2-1.3); Calcium 9.3 mg/dl (8.4-10.2); Chol/HDL Ratio 3.1 (1-3.5); Glucose 92 mg/dl (74-100); HDL Cholesterol 47 mg/dl (40-60); Magnesium 1.3 mg/dl (1.6-2.3)
[2024-06-11 09:59] LABS: Direct LDL Cholesterol 65.85 mg/dL (100-129)
[2024-06-11 10:01] LABS: Free T4 (Free Thyroxine) 1.35 ng/dl (0.78-2.19)
[2024-06-11 10:15] LABS: Thyroid Stimulating Hormone 1.82 uIU/mL (0.465-4.68)
== END 2024-06-11 23:59 | disposition home or self-care (01) ==
PROVIDERS: PCP Nurse Practitioner Family; Visit Provider Nurse Practitioner
DX: I25.10 Atherosclerotic heart disease of native coronary artery without angina pectoris (principal); R01.1 Cardiac murmur, unspecified; E11.69 Type 2 diabetes mellitus with other specified complication; I10 Essential (primary) hypertension; Z87.891 Personal history of nicotine dependence
CPT/HCPCS: 36415; 80048; 80061; 80076; 83735; 84439; 84443; 85025

== ENCOUNTER 2024-12-26 08:58 | Outpatient (CLI) | payer MEDICARE, SELFPAY ==
--- NOTE | 2024-12-26 09:00 | US_ITS ---
FINAL REPORT CLINICAL HISTORY: CLAUDICATION,DM,HTN,EX SMOKER,CAD COMPARISON: None FINDINGS: ANKLE-BRACHIAL PRESSURE INDICES Pressure indices are as follows: RIGHT LOWER EXTREMITY: Ankle-brachial pressure index: 1.18 Comments: Normal LEFT LOWER EXTREMITY: Ankle-brachial pressure index: 1.14 Comments: Normal IMPRESSION: No evidence of significant obstructive peripheral vascular disease of the lower extremities Reviewed, Interpreted and Dictated by Tammy Philip MD Transcribed by Love Flores Authenticated and . [facility]
--- OUTSIDE RECORDS SUMMARY | 2024-12-26 09:20 | XMS_ITS | Clinical Summary ---
Author Organization Healthcare Address [address] [place] [address] Care Team Providers Care Saw Handle Assembler Name Role Phone Monse Amanda PRINCIPAL ELECTRICAL ENGINEER Primary Care Provider [phone] ZacharyLisseth canales PRINCIPAL ELECTRICAL ENGINEER Unavailable [phone] Allergies No known active allergies Medications aspirin 81 MG EC tablet Take 1 tablet (81 mg) by mouth 1 (one) time each day. Active lisinopril-hydro CHLOROthiazide 10-12.5 MG tablet Take 1 tablet by mouth 1 (one) time each day. Active metFORMIN (Glucophage) 1000 MG tablet Take 1 tablet (1,000 mg) by mouth 2 (two) times a day with meals. Active simvastatin (Zocor) 5 MG tablet Take 1 tablet (5 mg) by mouth every night. Active verapamil SR (Calan-SR) 180 MG ER tablet Take 1 tablet (180 mg) by mouth every night. Do not crush or chew. Active multivitamin with minerals (Centrum) 9-200 mg-mcg tablet split tablet Take 1 split tablet by mouth daily. Active empagliflozin (Jardiance) 10 MGIndications:Ty pe 2 diabetes mellitus with stage 2 chronic kidney disease, without long-term current use of insulin ([facility]),Persis tent proteinuria associated with type 2 diabetes mellitus Take 1 tablet by mouth daily. 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 08/07/2024 Hypertensive chronic kidney disease with stage 1 through stage 4 chronic kidney disease, or unspecified chronic kidney disease 08/07/2024 Chronic kidney disease-mineral and bone disorder (CKD-MBD) 08/07/2024 Mixed hyperlipidemia 08/07/2024 CKD (chronic kidney disease) stage 2, GFR 60-89 ml/min 08/03/2024 Microalbuminuria 05/31/2022 Essential hypertension 05/31/2022 Type 2 diabetes mellitus wit h stage 2 chronic kidney disease, without long-term current use of insulin 05/31/2022 Family History Medical History Relation Name Comments Diabetes Father Heart disease Father Relation Name Status Comments Father Social History Tobacco Use Types Packs/Day Years Used Date Smoking Tobacco: Former Cigarettes Q uit: 04/18/1994 Smokeless Tobacco: Never Tobacco Cessation:Counseling Given: Not Answered Alcohol Use Standard Drinks/Week Comments Never 0 (1 standard drink = 0.6 oz pur e alcohol) Comments No Sex and Gender Information Value Date Recorded Sex Assigned at Not on file Legal Sex Female 8:28 PM EDT Gender Identity Not on file Sexual Orientation Not on file Last Filed Vital Signs Vital Sign Reading Time Taken Comments Blood Pressure 138/75 08/03/2024 10:35 AM EDT Pulse 80 08/03/2024 10:35 AM EDT Temperature 37.4 C (99.4 F) 08/03/2024 10:35 AM EDT Respiratory Rate 18 08/03/2024 10:35 AM EDT Oxygen Saturation 97% 08/03/2024 10:35 AM EDT Inhaled Oxygen Concentration - - Weight 66.7 kg (147 lb) 08/03/2024 10:35 AM EDT Height 160 cm (5' 3 ) 08/03/2024 10:35 AM EDT Body Mass Index 26.04 08/03/2024 10:35 AM EDT Plan of Treatment Upcoming Encounters Date Type Department Care Team (Late st Contact Info) Description 08/16/2025 9:20 AM EDT Office Visit [facility] [address] [place] [address] Trey Hicks MD [address] [place] [phone] Health Maintenance Due Date Last Done Comments [facility]-Bone Density Scan 1945 [facility]-Depression Screening 1946 [facility]-Diabetes: Hemoglobin A1C 1946 [facility]-Hepatitis C Screening 1946 [facility]-Medicare Annual Wellness (AWV) 1946 [facility]-/Child/Adol SDOH Screenings 1946 Diabetes: Dental Exam 1956 [facility]- SDOH Screenings 1964 [facility]-Adult SDOH Screenings 1964 [facility]-Zoster Vaccines (1 of 2) 1996 [facility]-Pneumococcal Vaccine: 50 + Years (2 of 2 - PPSV23, PCV20, or PCV21) 10/12/2016 08/17/2016 [facility]-RSV Vaccine: 60+ Years o r (1 - 1-dose 75+ series) 2021 [id number] Vaccine (2 - 2024- season) 2024 04/09/2021 [facility]-Influenza Vaccine (#1) 12/17/202401/24, 03/13/2021, 03/06/2010 [facility]-DTaP,Tdap,and Td Vaccine s (2 - Td or Tdap) 08/17/2026 08/17/2016 [facility]-Obesity Intervention Completed 025, 07/21/2023, 05/31/2022 HPV Vaccines Aged Out No longer eligi ble based on patient's age to complete this topic [facility]-HIB Vaccines Aged Out No longer e ligible based on patient's age to complete this topic [facility]-Hepatitis A Vaccines Aged Out No longer eligible based on patient's age to complete this topic [facility]-IPV Vaccines Aged Out No longer e ligible based on patient's age to complete this topic [facility]-Rotavirus Vaccines Aged Out No lo nger eligible based on patient's age to complete this topic Insurance [facility] MEDICARE Care Teams Saw Handle Assembler Relationship Specialty Start Date End Date Monse Amanda APRN [address] [place] [id number] PCP - General 04/06/22 Lisseth Loco APRN [address] [place] [id number] Referring Physician 04/06/22
== END 2024-12-26 23:59 | disposition home or self-care (01) ==
LOC: RT 08:59
PROVIDERS: PCP Nurse Practitioner Family; Visit Provider Nurse Practitioner
DX: I25.10 Atherosclerotic heart disease of native coronary artery without angina pectoris (principal); I10 Essential (primary) hypertension; I70.213 Atherosclerosis of native arteries of extremities with intermittent claudication, bilateral legs; E11.9 Type 2 diabetes mellitus without complications; R94.31 Abnormal electrocardiogram [ECG] [EKG]; R29.898 Other symptoms and signs involving the musculoskeletal system; Z82.49 Family history of ischemic heart disease and other diseases of the circulatory system; Z87.891 Personal history of nicotine dependence
CPT/HCPCS: 93923

== ENCOUNTER 2025-01-21 11:10 | Outpatient (CLI) | payer MEDICARE, SELFPAY ==
--- OUTSIDE RECORDS SUMMARY | 2025-01-21 11:14 | XMS_ITS | Clinical Summary ---
Author Organization Healthcare Address [address] [place] [address] Care Team Providers Care Manager Contact Name Role Phone Monse Amanda METAL SOLDERER Primary Care Provider [phone] DunnellonLisseth canales METAL SOLDERER Unavailable [phone] Allergies No known active allergies Medications [...] kidney disease, without long-term current use of insulin,Persiste nt proteinuria associated with type 2 diabetes mellitus [...] Description 08/16/2025 9:20 AM EDT Office Visit [facility] [address] [place] [phone] Trey Hicks MD [address] [place] [phone] Health Maintenance Due Date Last Done Comments [facility]-Bone Density Scan 1945 [facility]-Depression Screening 1946 [facility]-Diabetes: Hemoglobin A1C 1946 [facility]-Hepatitis C Screening 1946 [facility]-Medicare Annual Wellness (AWV) 1946 [facility]-Infant/Child/Adol SDOH Screenings 1946 Diabetes: Dental Exam 1956 [facility]- SDOH Screenings 1964 [facility]-Adult SDOH Screenings 1964 [facility]-Zoster Vaccines (1 of 2) 1996 [facility]-Pneumococcal Vaccine: 50 + Years (2 of 2 - PPSV23, PCV20, or PCV21) 10/12/2016 08/17/2016 [facility]-RSV Vaccine: 60+ Years o r (1 - 1-dose 75+ series) 2021 [id number] Vaccine (2 - 2024- season) 2024 04/09/2021 [...] patient's age to complete this topic Insurance [facility] MEDICARE Care Teams Manager Contact Relationship Specialty Start Date End Date Monse Amanda APRN [address] [place] [id number] PCP - General 04/06/22 Lisseth Loco APRN [address] [place], [place] [id number] Referring Physician 04/06/22
[2025-01-21 11:58] LABS: Hematocrit 35.3 % (37.0-47.0); Hemoglobin 11.2 g/dL (12.2-16.2); Immature Granulocytes % 0.5 %; Mean Corpuscular HGB Conc 31.7 g/dL (31.8-35.4); Mean Corpuscular Hemoglobin 28.8 pg (27.0-31.2); Mean Corpuscular Volume 90.7 fl (81-99); Nucleated Red Blood Cells % 0 %; Platelet Count 288 K/mm3 (142-424); Red Blood Count 3.89 M/mm3 (4.20-5.40); Red Cell Distribution Width-SD 48.6 fL; White Blood Count 9.4 K/mm3 (4.8-10.8)
[2025-01-21 12:55] LABS: Anion Gap 16.9 mEq/L (5-15); Blood Urea Nitrogen 39 mg/dl (7-17); Calcium 9.1 mg/dl (8.4-10.2); Carbon Dioxide 20 mmol/L (22.0-30.0); Chloride 105 mmol/L (98-107); Creatinine,Serum 1.10 mg/dl (0.52-1.04); Estimated Glomerular Filt Rate 48 ml/min (>60); GFR (African American) 58 ML/MIN (>60); Glucose 120 mg/dl (74-100); Magnesium 1.8 mg/dl (1.6-2.3); Potassium 4.9 mmoL/L (3.5-5.1); Sodium 137 mmol/L (136-145)
[2025-01-21 13:07] LABS: NT Pro Brain Natriuretic Pep. 1010 pg/mL (0-450)
== END 2025-01-21 23:59 | disposition home or self-care (01) ==
LOC: LAB 11:12
PROVIDERS: PCP Nurse Practitioner Family; Visit Provider Internal Medicine
DX: I25.10 Atherosclerotic heart disease of native coronary artery without angina pectoris (principal); I10 Essential (primary) hypertension; R94.31 Abnormal electrocardiogram [ECG] [EKG]; Z82.49 Family history of ischemic heart disease and other diseases of the circulatory system; R29.898 Other symptoms and signs involving the musculoskeletal system; R68.89 Other general symptoms and signs; I73.9 Peripheral vascular disease, unspecified; R06.00 Dyspnea, unspecified
CPT/HCPCS: 36415; 80048; 83735; 83880; 85025

== ENCOUNTER 2025-01-28 10:28 | Outpatient (CLI) | payer MEDICARE, SELFPAY ==
--- OUTSIDE RECORDS SUMMARY | 2025-01-28 10:32 | XMS_ITS | Clinical Summary ---
Author Organization Healthcare Address [address] [place] [address] Care Team Providers Care Musical Instruments Assembler Name Role Phone Monse Amanda PHOTOSTAT OPERATOR HELPER Primary Care Provider [phone] [place]Lisseth canales PHOTOSTAT OPERATOR HELPER Unavailable [phone] Allergies No known active allergies Medications [...] by mouth daily. 30 tablet 11 08/03/2024 6 Active Active Problems Problem Noted Date Diagnosed [...] Description 08/16/2025 9:20 AM EDT Office Visit [facility] [address] [place] [phone] Trey Hicks MD [address] [place] [phone] Health Maintenance Due Date Last Done [...] r (1 - 1-dose 75+ series) 2021 [id number] Vaccine (2 - 2024- season) 2024 04/09/2021 [...] patient's age to complete this topic Insurance [facility] MEDICARE Care Teams Musical Instruments Assembler Relationship Specialty Start Date End Date Monse Amanda APRN [address] [place] [id number] PCP - General 04/06/22 Lisseth Loco APRN [address] [place], [place] [id number] Referring Physician 04/06/22
[2025-01-28 11:53] LABS: Chloride 100 mmol/L (98-107); Potassium 5.1 mmoL/L (3.5-5.1); Sodium 138 mmol/L (136-145)
[2025-01-28 11:56] LABS: Anion Gap 18.1 mEq/L (5-15); Blood Urea Nitrogen 44 mg/dl (7-17); Carbon Dioxide 25 mmol/L (22.0-30.0); Creatinine,Serum 1.20 mg/dl (0.52-1.04); Estimated Glomerular Filt Rate 43 ml/min (>60); GFR (African American) 53 ML/MIN (>60)
[2025-01-28 11:57] LABS: Calcium 9.4 mg/dl (8.4-10.2); Glucose 84 mg/dl (74-100)
[2025-01-28 12:05] LABS: NT Pro Brain Natriuretic Pep. 473 pg/mL (0-450)
== END 2025-01-28 23:59 | disposition home or self-care (01) ==
LOC: LAB 10:29
PROVIDERS: PCP Nurse Practitioner Family; Visit Provider Nurse Practitioner Family
DX: R79.89 Other specified abnormal findings of blood chemistry (principal); R06.00 Dyspnea, unspecified
CPT/HCPCS: 36415; 80048; 83880

== ENCOUNTER 2025-02-07 10:22 | Outpatient (CLI) | payer MEDICARE, SELFPAY ==
--- NOTE | 2025-02-07 10:30 | CT_ITS ---
FINAL REPORT CLINICAL HISTORY: claudication,abnl corwin COMPARISON: None FINDINGS: CT ABDOMEN, CT PELVIS, CTA ABDOMEN, CTA PELVIS AND CTA LOWER EXTREMITY RUNOFF COMPARISON: None TECHNIQUE: Thin section axial CT with IV contrast supplemented with 3D MIP reconstruction under CT Angiogram protocol This study was performed with techniques to keep radiation doses as low as reasonably achievable, (ALARA). Individualized dose reduction techniques using automated exposure control or adjustment of mA and/or kV according to the patient's size were employed. FINDINGS: CT ANGIOGRAM ABDOMEN AND PELVIS: Abdominal aorta shows no significant stenosis, aneurysm or dissection. Minimal plaque is present. Central mesenteric and renal arteries are widely patent. Iliac vessels show no significant stenosis, dissection or aneurysm. CTA RIGHT LOWER EXTREMITY: The femoral and popliteal vessels showed no significant stenosis or occlusion. Minimal plaque is present. There is three-vessel runoff of the calf. CTA LEFT LOWER EXTREMITY: The femoral and popliteal vessels show no significant stenosis or occlusion. Minimal plaque is present. There is three-vessel runoff of the calf. Abdomen: There is a 4.1 cm left renal cyst present. The remaining solid abdominal organs are grossly unremarkable. The gallbladder is well. No bowel obstruction is seen. There is no free fluid or free air. Pelvis: The appendix is normal. There is a mixed density mass in the left adnexa, that contains fat and calcification, measuring 41 x 32 mm. 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 Pelvic bowel loops are unremarkable. No mass or fluid collection is seen. The uterus and right ovary are normal in appearance. There is a large cystocele and pelvic floor prolapse. IMPRESSION: 1. No significant peripheral vascular disease identified. 2. Large cystocele and pelvic floor prolapse are present. This study was performed using automated techniques to achieve radiation exposure as low as reasonably achievable Reviewed, Interpreted and Dictated by Lidia Juarez MD Transcribed by Love Flores Authenticated and [facility]
--- OUTSIDE RECORDS SUMMARY | 2025-02-07 10:49 | XMS_ITS | Clinical Summary ---
Author Organization Healthcare Address [address] [place] [address] Care Team Providers Care Respite Coordinator Name Role Phone Monse Amanda AUTO CARE CENTER MANAGER Primary Care Provider [phone] [place] AUTO CARE CENTER MANAGER Unavailable [phone] Allergies No known active allergies Medications [...] Description 08/16/2025 9:20 AM EDT Office Visit [facility] [address] [place] [phone] Trey Hicks MD [address] [place] [phone] Health Maintenance Due Date Last Done [...] r (1 - 1-dose 75+ series) 2021 [id number] Vaccine (2 - 2024- season) 2024 04/09/2021 [...] patient's age to complete this topic Insurance [facility] MEDICARE Care Teams Respite Coordinator Relationship Specialty Start Date End Date Monse Amanda APRN [address] [place] [id number] PCP - General 04/06/22 Lisseth Loco APRN [address] [place], [place] [phone] Referring Physician 04/06/22
[2025-02-07] MEDS: 0.9 % SODIUM CHLORIDE 50 ML VIAL 42 ML IV (11:01)
[2025-02-07] MEDS: IOPAMIDOL-370 (76%);100ML BOTTLE 94 ML IV (11:01)
[2025-02-07] MEDS: SODIUM CHLORIDE 0.9% 10ML SYR (RAD ONLY) 10 ML IV (11:01)
--- NOTE | 2025-02-07 11:15 | CA_ITS ---
APPROVED REPORT EXAM: Comprehensive 2D, Doppler, and color-flow Echocardiogram Database Admin: Breanna Marx CRT Ht: 5 ft 4 in Wt: 152lbs BSA: 1.74 BP: 158/62 mmHg Indications: Murmur, Shortness of Breath, Diabetes, Dyspnea, CAD, Hypertension/HDD, exsmoker 2D Dimensions LA Volume 80.00 mL LA Volume Index 45.98 mL/m2 (M/F) 16-34 M-Mode Dimensions RVDd 3.29 cm (0.9-2.6) LA Diam 4.80 cm (1.9-4.0) LVDd 3.76 cm (3.5-5.7) LVDs 2.78 cm (3.5-5.7) IVSd 1.68 cm (0.6-1.1) PWd 1.04 cm (0.6-1.1) EF (Teich) 52.00% FS 26.10% EDV (Teich) 60.40 mL TAPSE 1.88 (<1.7) ESV (Teich) 29.00 mL LV Diastology E Decel Time 180 (160-240 msec) E/A Ratio 3.5 MED A' 2.80 cm/s LAT A' 2.90 cm/s Aortic Valve ADRYAN Index 0.80 cm2/m2 AoV Peak Jerry. 249.0 (50-130 cm/s) AO Peak GR. 24.80 mmHg AO Mean GR. 14.10 (<5 mmHg) AO VTI 54.0 (18-25 cm) ADRYAN (VTI) 1.43 (2.5-4.5 cm2) Mitral Valve MV E Max Jerry. 115.0 (40-130 cm/s) MV A Velocity 33.0 (40-130 cm/s) E/A Ratio 3.47 MV PHT 53.0 ms Pulmonary Valve PV Peak Velocity 125.0 (50-150 cm/s) Tricuspid Valve TR P. Velocity 275.00 cm/s RAP Estimate 10.00 mmHg RVSP 40.30 mmHg Left Ventricle The left ventricle is normal size. Left ventricular systolic function is normal. The left ventricular ejection fraction is within the normal range. There is increased left ventricular wall thickness. There is normal LV segmental wall motion. Grade 3 diastolic dysfunction is present. LVEF is 55% Right Ventricle The right ventricle is normal size. The right ventricular systolic function is normal. Atria The left atrium is moderately dilated. The right atrium is mildly dilated. There is no color Doppler evidence of interatrial shunt. Aortic Valve The aortic valve is moderately thickened. Mild to moderate aortic stenosis present. ADRYAN by continuity equation is 1.5 cm???. Peak velocity 2.5 m/s. Mean AV gradient 15 mmHg. Max AV gradient 25 mmHg. Trace aortic regurgitation is present. Mitral Valve The mitral valve is normal in structure. No evidence of mitral valve stenosis. Moderate mitral regurgitation is present. The MR jet is eccentric and posteriorly directed. The MR jet may be underestimated on TTE. Tricuspid Valve The tricuspid valve leaflets are thin and pliable. Moderate tricuspid regurgitation. RVSP is 30-35 mmHg. Pulmonic Valve The pulmonary valve is grossly normal in structure. Trace pulmonic valve regurgitation is present. Great Vessels The aortic root is normal in size. IVC is normal in size and collapses >50% with inspiration. Pericardium There is no pericardial effusion. Other Information Study Quality: Fair Conclusion Normal biventricular systolic function. Grade 3 diastolic dysfunction. Biatrial dilation. Mild to moderate (ADRYAN by continuity equation is 1.5 cm???. Peak velocity 2.5 m/s. Mean AV gradient 15 mmHg. Max AV gradient 25 mmHg). Moderate MR (the MR jet is eccentric [posteriorly directed] and may be underestimated on TTE). Moderate TR. Electronically signed by : Chela Ceja MD 02/13/2025 00:10:38
== END 2025-02-07 23:59 | disposition home or self-care (01) ==
LOC: RAD 10:23
PROVIDERS: PCP Nurse Practitioner Family; Visit Provider Internal Medicine
DX: I08.3 Combined rheumatic disorders of mitral, aortic and tricuspid valves (principal); I11.9 Hypertensive heart disease without heart failure; N81.89 Other female genital prolapse; N81.10 Cystocele, unspecified; I25.10 Atherosclerotic heart disease of native coronary artery without angina pectoris; R94.31 Abnormal electrocardiogram [ECG] [EKG]; Z82.49 Family history of ischemic heart disease and other diseases of the circulatory system; R29.898 Other symptoms and signs involving the musculoskeletal system; R68.89 Other general symptoms and signs; I73.9 Peripheral vascular disease, unspecified; E11.9 Type 2 diabetes mellitus without complications; Z87.891 Personal history of nicotine dependence
CPT/HCPCS: 75635; 93306; Q9967

== ENCOUNTER 2025-02-27 08:53 | Outpatient (CLI) | payer MEDICARE, SELFPAY ==
--- OUTSIDE RECORDS SUMMARY | 2025-02-27 08:58 | XMS_ITS | Encounter Summary ---
Author Organization Healthcare Address [address] [place] [address] Care Team Providers Care Cafeteria Helper Name Role Phone Monse Amanda CARBURETOR SPECIALIST Primary Care Provider [phone] Lisseth Lcoo CARBURETOR SPECIALIST Unavailable [phone] Hilton Olguin MD Unavailable [phone] Cristy Mast CARBURETOR SPECIALIST Unavailable + [phone] Reason for Referral * Consultation (Routine) - Authorized Specialty Diagnoses / Procedures Referred By Contac t Referred To Contact Cardiothoracic Surgery Diagnoses Mitral regurgitation and aortic stenosis Cristy Mast APRN [address] [facility] [address] [place] [address] Phone: tel: fax: Deo Lozada MD [address] [facility] [address] [place] [address] Phone: tel:[phone] fax:[phone] Referral ID Status Reason Start Date Expiration Date Visits Requested Visits Authorized [id number] Authorized Specialty Services Required 02/18/2025 08/20/2026 1 1 Encounter Details Date Type Department Care Team (Late st Contact Info) Description 02/18/2025 Orders Only [facility] [place] James [address] [place] [address] Saskia Jackson, RN HOSP. SPECIAL DIAGNOSTIC FACILITIES ADMI Mitral regurgitation and aortic stenosis (Primary Dx) Social History Tobacco Use Types Packs/Day Years Used Date Smoking Tobacco: Former Cigarettes Q uit: 04/18/1994 Smokeless Tobacco: Never Alcohol Use Standard Drinks/Week Comments Never 0 (1 standard drink = 0.6 oz pur e alcohol) Comments No Sex and Gender Information Value Date Recorded Sex Assigned at Not on file Legal Sex Female 8:28 PM EDT Gender Identity Not on file Sexual Orientation Not on file documented as of this encounter Miscellaneous Notes * Progress Notes - Saskia Jackson RN - 02/18/2025 11:49 AM EST Referral to CT Surgery documented in this encounter Plan of Treatment Upcoming Encounters Date Type Department Care Team (Late st Contact Info) Description 02/28/2025 10:20 AM EST Consult [facility] Cardiothoracic [address], [address] [place] [address] Deo Lozada MD [address] [place] [address] 08/16/2025 9:20 AM EDT Office Visit [address] [facility] [address] [place] [address] Trey Hicks MD [address] [place] [address] Scheduled Referrals Name Type Priority Associated Diagnoses Orde r Schedule Ambulatory referral to Cardiac Surgery Outpatient Referral Routine Mitral regurgitation and aortic stenosis 1 Occurrences starting 02/18/2025 until 08/22/2026 documented as of this encounter Visit Diagnoses Diagnosis Mitral regurgitation and aortic stenosis- Primary Mitral valve insufficiency and aortic valve stenosis documented in this encounter Additional Health Concerns Assessment Noted Time A fall risk assessment has been complete d for the patient 07/21/2023 2:00 PM EDT A Body Mass Index follow-up plan has been documented for the patient 08/07/2024 12:20 PM EDT documented as of this encounter Care Teams Cafeteria Helper Relationship Specialty Start Date End Date Fryman, Eugonda F, CARBURETOR SPECIALIST [address] [place], [place] [id number] PCP - General 04/06/22 Lisseth Loco APRN [address] [place] [address] [phone] Referring Physician 04/06/22 Hilton Olguin MD [address] [facility] [address] [place], [place] [id number] Referring Physician Cardiology 02/19/25 Cristy Mast APRN 161 [facility] 400 [place] [address] 02/19/25 documented as of this encounter
--- OUTSIDE RECORDS SUMMARY | 2025-02-27 08:58 | XMS_ITS | Encounter Summary ---
Author Organization Healthcare Address [address] [place] [address] Care Team Providers Care Shoe Turner Name Role Phone Monse Amanda SPECIALTY PLANT SUPERVISOR Primary Care Provider + [phone] LenoreLisseth canales Jordana SPECIALTY PLANT SUPERVISOR Unavailable [phone] Hilton Olguin MD Unavailable [phone] Cristy Mast SPECIALTY PLANT SUPERVISOR Unavailable + [phone] Encounter Details Date Type Department Care Team (Late st Contact Info) Description 02/07/2025 Orders Only External Location [address] [place] [address] Carmelo Ceja MD 1210 [facility] [address] [place] [id number] Social History Tobacco Use Types Packs/Day Years [...] on file documented as of this encounter Plan of Treatment Upcoming Encounters Date Type Department Care Team (Late Contact Info) Description 02/28/2025 10:20 AM EST Consult [facility] Cardiothoracic [address] [place] [address] Deo Lozada MD [address] [place] [address] 08/16/2025 9:20 AM EDT Office Visit [facility] [address] [address] Trey Hicks MD [address] [place] [address] documented as of this encounter Procedures Procedure Name Priority Date/Time Associated Diagnosis Comments CT OUTSIDE IMAGES 02/07/2025 10:44 AM EDT documented in this encounter Results * CT OUTSIDE IMAGES (02/07/2025 10:44 AM EDT) Anatomical Region Laterality Modality Computed Tomogra phy 02/07/2025 10:4 4 AM EDT Carmelo Ceja MD IMG CT PROCEDURES Edited Result - Final documented in this encounter Visit Diagnoses Not on filedocumented in this encounter Additional Health Concerns Assessment Noted Time A fall risk assessment has been complete d for the patient 07/21/2023 2:00 PM EDT A Body Mass Index follow-up plan has been documented for the patient 08/07/2024 12:20 PM EDT documented as of this encounter Care Teams Shoe Turner Relationship Specialty Start Date End Date Monse Amanda APRN [address] [place] [address] PCP - General 04/06/22 Lisseth Loco APRN [address] [place] [address] [phone] Referring Physician 04/06/22 Hilton Olguin MD 1210 [facility] 36 [place] [address] Referring Physician Cardiology 02/19/25 Cristy Mast APRN 161 [facility] 400 [facility] 400 [place] [address] 02/19/25 documented as of this encounter
--- OUTSIDE RECORDS SUMMARY | 2025-02-27 08:58 | XMS_ITS | Encounter Summary ---
Author Organization Healthcare Address [address] [place] [address] Care Team Providers Care Actuarial Analyst Name Role Phone Monse Amanda UTILIZATION REVIEW RN Primary Care Provider + [phone] TurinLisseth canales Jordana UTILIZATION REVIEW RN Unavailable [phone] Hilton Olguin MD Unavailable [phone] Cristy Mast UTILIZATION REVIEW RN Unavailable + [phone] Encounter Details Date Type Department Care Team (Late st Contact Info) Description 02/07/2025 Orders Only External Location [address] [place] [address] Carmelo Ceja MD 1210 [facility] [address] [place] [phone] Social History Tobacco Use Types Packs/Day Years [...] Info) Description 02/28/2025 10:20 AM EST Consult [facility] Cardi[facility] [address], [address] [place] [address] Deo Lozada MD [address] [place] [address] 08/16/2025 9:20 AM EDT Office Visit [facility] [address] [address] Trey Hicks MD [address] [place] [address] documented as of this encounter Procedures Procedure Name Priority Date/Time Associated Diagnosis Comments US OUTSIDE IMAGES 02/07/2025 11:11 AM EDT documented in this encounter Results * US OUTSIDE IMAGES (02/07/2025 11:11 AM EDT) Anatomical Region Laterality Modality Ultrasound 02/07/2025 11:1 1 AM EDT us Carmelo Ceja MD IMG US PROCEDURES Edited Result - Final documented in this encounter Visit Diagnoses Not on filedocumented in this encounter Additional Health Concerns Assessment Noted Time A fall risk assessment has been complete d for the patient 07/21/2023 2:00 PM EDT A Body Mass Index follow-up plan has been documented for the patient 08/07/2024 12:20 PM EDT documented as of this encounter Care Teams Actuarial Analyst Relationship Specialty Start Date End Date Monse Amanda APRN [address] [place] [address] PCP - General 04/06/22 Lisseth Loco APRN [address] [place] [id number] Referring Physician 04/06/22 Hilton Olguin MD 1210 [facility] 36 [place] [address] Referring Physician Cardiology 02/19/25 Cristy Mast APRN [address] [place] [address] [place] [address] 02/19/25 documented as of this encounter
--- OUTSIDE RECORDS SUMMARY | 2025-02-27 08:58 | XMS_ITS | Clinical Summary ---
Author Organization Healthcare Address [address] [place] [address] Care Team Providers Care Tractor Operator Laser Leveling Name Role Phone Monse Amanda MEDICARE COORDINATOR Primary Care Provider [phone] Lisseth Loco MEDICARE COORDINATOR Unavailable [phone] Hilton Olguin MD Unavailable [phone] Cristy Mast MEDICARE COORDINATOR Unavailable + [phone] Allergies No known active allergies Medications aspirin [...] without long-term current use of insulin 05/31/2022 Encounters Date Type Department Care Team Description 02/21/2025 Telephone [facility] [address] [place] [address] Jenny Elam RN 02/18/2025 Orders Only [facility] Vascular [facility] [address] [place] [address] Saskia Jackson RN Mitral regurgitation and aortic stenosis (Primary Dx) 02/07/2025 Orders Only External Location [address] [place] [address] Carmelo Ceja MD 02/07/2025 Orders Only External Location [address] [place] [address] Carmelo Ceja MD from Last 3 Months Family History Medical History Relation Name Comments [...] Info) Description 02/28/2025 10:20 AM EST Consult [facility] Cardiothoracic [address], [address] [place] [address] Deo Lozada MD [address] [place] [address] 08/16/2025 9:20 AM EDT Office Visit [facility] [facility] [address] [place] [address] Trey Hicks MD [address] [place] [address] Health Maintenance Due Date Last Done Comments [facility]-Bone Density Scan 1945 [facility]-Depression Screening 1945 [facility]-Diabetes: Hemoglobin A1C 1945 [facility]-Hepatitis C Screening 1945 [facility]-Medicare Annual Wellness (AWV) 1945 [facility]-/Child/Adol SDOH Screenings 1945 Diabetes: Dental Exam 1956 [facility]- SDOH Screenings 1964 [facility]-Adult SDOH Screenings 1964 [facility]-Zoster Vaccines (1 of 2) 1996 [facility]-Pneumococcal Vaccine: 50 + Years (2 of 2 - PPSV23, PCV20, or PCV21) 10/12/2016 08/17/2016 [facility]-RSV Vaccine: 60+ Years o r (1 - 1-dose 75+ series) 2021 [id number]-83 Vaccine (2 - 2024- season) 2024 04/09/2021 [...] on patient's age to complete this topic Procedures Procedure Name Priority Date/Time Associated Diagnosis Comments US OUTSIDE IMAGES 02/07/2025 11:[address] OUTSIDE IMAGES 02/07/2025 10:44 AM EDT from Last 3 Months Results * US OUTSIDE IMAGES (02/07/2025 11:11 AM EDT) Anatomical Region Laterality Modality Ultrasound 02/07/2025 11:1 1 AM EDT Carmelo Ceja MD IM US PROCEDURES Edited Result - Final * CT OUTSIDE IMAGES (02/07/2025 10:44 AM EDT) Anatomical Region Laterality Modality Computed Tomogra phy 02/07/2025 10:4 4 AM EDT Carmelo Ceja MD IMEze CT PROCEDURES Edited Result - Final from Last 3 Months Insurance [employer] MEDICARE Care Teams Tractor Operator Laser Leveling Relationship Specialty Start Date End Date Monse Amanda APRN [address] [place] [address] PCP - General 04/06/22 Lisseth Loco APRN [address] [place] [address] [phone] Referring Physician 04/06/22 Hilton Olguin MD [facility] [address] [address] Referring Physician Cardiology 02/19/25 Cristy Mast APRN [address] [place] [address] 02/19/25
--- OUTSIDE RECORDS SUMMARY | 2025-02-27 08:58 | XMS_ITS | Encounter Summary ---
Author Organization Healthcare Address [address] [place] [address] Care Team Providers Care Associate Business Analyst Name Role Phone Monse Amanda TOBACCO WAREHOUSE AGENT Primary Care Provider +- [phone] [place] GapLisseth canales Jordana TOBACCO WAREHOUSE AGENT Unavailable [phone] Hilton Olguin MD Unavailable [phone] Cristy Mast TOBACCO WAREHOUSE AGENT Unavailable + [phone] Encounter Details Date Type Department Care Team (Late st Contact Info) Description 02/21/2025 Telephone [facility] [address] [place] [address] Jenny Elam, RN [facility] Social History Tobacco Use Types Packs/Day Years [...] as of this encounter Miscellaneous Notes * Telephone Encounter - Jenny Elam, RN - 02/21/2025 12:08 PM EST Patient Name: Ayanna Bassett :1945 Date:02/21/2025 Affiliate site: [facility] Referring Physician: Cristy Mast Education/ Information provided: This Nurse Liaison spoke with Ayanna Bassett prior to an appointment on 02/28. Explained nurse liaison services offered through [facility]. Discussed appointment necessity, and that she would be seeing Dr. Lozada in the cardiothoracic surgery clinic. Patient verbalizes understanding. Patient denied any barriers to arriving to clinic visit. All questions answered. Provided patient with liaison contact information and encouraged patient to call with any questions, concerns or assistanceneeds. Will follow up with patient after appointment. Jenny Elam RN [facility] Nurse Liaison [phone] documented in this encounter Plan of Treatment Upcoming Encounters Date Type Department Care Team (Late st Contact Info) Description 02/28/2025 10:20 AM EST Consult [facility] Cardiothoracic [address], [address] [place] [address] Deo Lozada MD [address] [facility] [address] [place] [address] 08/16/2025 9:20 AM EDT Office Visit [facility] [address] [place] [address] Trey Hicks MD [address] [place] [address] documented as of this encounter Visit Diagnoses Not on filedocumented in this encounter Additional Health Concerns Assessment Noted Time A fall risk assessment has been complete d for the patient 07/21/2023 2:00 PM EDT A Body Mass Index follow-up plan has been documented for the patient 08/07/2024 12:20 PM EDT documented as of this encounter Care Teams Associate Business Analyst Relationship Specialty Start Date End Date Monse Amanda APRN [address] [place] [address] PCP - General 04/06/22 Lisseth Loco APRN [address] [place] [phone] Referring Physician 04/06/22 Hilton Olguin MD [address] [place] [address] Referring Physician Cardiology 02/19/25 Cristy Mast APRN [address] [place] [address] 02/19/25 documented as of this encounter
[2025-02-27 09:53] LABS: Anion Gap 14.9 mEq/L (5-15); Blood Urea Nitrogen 44 mg/dl (7-17); Calcium 9.8 mg/dl (8.4-10.2); Carbon Dioxide 23 mmol/L (22.0-30.0); Chloride 104 mmol/L (98-107); Creatinine,Serum 1.30 mg/dl (0.52-1.04); Estimated Glomerular Filt Rate 40 ml/min (>60); GFR (African American) 48 ML/MIN (>60); Glucose 122 mg/dl (74-100); Potassium 4.9 mmoL/L (3.5-5.1); Sodium 137 mmol/L (136-145)
== END 2025-02-27 23:59 | disposition home or self-care (01) ==
LOC: LAB 08:55
PROVIDERS: PCP Nurse Practitioner Family; Visit Provider Nurse Practitioner
DX: I10 Essential (primary) hypertension (principal)
CPT/HCPCS: 36415; 80048